=== PATIENT | female | born 1965 | race Caucasian/White ===

== ENCOUNTER 2017-10-09 17:24 | Emergency (ER) | payer OTHER ==
[~2017-10-09] VITALS: Ht 162.6 cm; Wt 109.8 kg
[~2017-10-09 17:24] MED LIST: ALBU90OI INH; ALBU90OI6 INH; AZIT250 PO; CLON.5 PO; DICL25ER PO; FURO100EL PO; FURO20 PO; HYDACE5325 PO; LISHYD1012 PO; LISI20 PO; LISI5 PO; MECL25 PO; Norco 5-325 Ta1 EACH PO; POTA10T PO; POTCHL10ER PO; RXALBOI INH; RXHYD5325 PO; SALM50IP INH; TUDORZA PRESS400 MCG IH; VICODIN 5-3001 EACH PO
[2017-10-09 17:54] LABS: BASOPHILS ABSOLUTE AUTO 0.05 K/mm3 (0.00-0.23); BASOPHILS PERCENT AUTO 1 % (0-2); EOSINOPHILS ABSOLUTE AUTO 0.14 K/mm3 (0.00-0.68); EOSINOPHILS PERCENT AUTO 2 % (0-6); Hematocrit 39.5 % (33.0-51.0); Hemoglobin 13.1 g/dL (11.5-16.0); IMMATURE GRAN ABSOLUTE AUTO 0.02 K/mm3 (0.00-0.10); IMMATURE GRAN PERCENT AUTO 0 % (0-1); LYMPHOCYTES ABSOLUTE AUTO 2.46 K/mm3 (0.84-5.20); LYMPHOCYTES PERCENT AUTO 35 % (21-46); MONOCYTES ABSOLUTE AUTO 0.21 K/mm3 (0.16-1.47); MONOCYTES PERCENT AUTO 3 % (4-13); Mean Corpuscular HGB 30.5 pg (26.0-34.0); Mean Corpuscular HGB Conc 33.2 g/dL (31.5-36.5); Mean Corpuscular Volume 92 fL (80-100); Mean Platelet Volume 9.1 fL (9.1-12.4); NEUTROPHILS ABSOLUTE AUTO 4.17 K/mm3 (1.96-9.15); NEUTROPHILS PERCENT AUTO 59 % (41-73); Platelet Count 228 K/mm3 (150-400); RDW Standard Deviation 43.4 fL (35.1-46.3); White Blood Cell Count 7.05 K/mm3 (4.00-11.30)
[2017-10-09 18:17] LABS: Alanine Aminotransfer (ALT/SGP 16 U/L (12-78); Albumin, Blood 3.5 g/dL (3.4-5.0); Alk Phos 89 U/L (50-136); Anion Gap 6 mmol/L (6-16); Aspartate Aminotrans (AST/SGOT 13 U/L (12-37); Bilirubin, Total 0.7 mg/dL (0.1-1.0); Blood Urea Nitrogen 18 mg/dL (8-24); CO2, Blood 28 mmol/L (21-32); Chloride, Blood 105 mmol/L (98-108); Creatinine, Blood 0.95 mg/dL (0.40-1.00); Globulin, Blood 3.5 g/dL (2.2-4.0); Glomerular Filtration Rate >60 (60-); Glucose, Blood 106 mg/dL (70-99); Potassium, Blood 3.8 mmol/L (3.5-5.5); Sodium, Blood 139 mmol/L (136-145)
[2017-10-09 18:18] LABS: Troponin I <0.015 ng/mL (0.000-0.040)
[2017-10-09] MEDS ORDERED: Diclofenac Sodi50 MG PO (20:40)
[2017-10-09] MEDS ORDERED: Prinivil10 MG PO (20:41)
[2017-10-09] MEDS ORDERED: CYCL10 PO (20:42)
[2017-10-09] MEDS ORDERED: VENL150ER PO (20:42)
[2017-10-09] MEDS ORDERED: BUSP10 PO (20:42)
[2017-10-09] MEDS ORDERED: TRAM50 PO (20:42)
[2017-10-09] MEDS ORDERED: BUSP15 PO (20:44)
[2017-10-09] MEDS ORDERED: CLON.5 PO (20:45)
[2017-10-09] MEDS ORDERED: Ventolin/Prove6.7 GM INH (20:45)
[2017-10-09] MEDS ORDERED: ASPI81CH PO (20:46)
== END 2017-10-09 21:21 | disposition home or self-care (01) ==
LOC: ER 17:24
PROVIDERS: Emergency Medicine
DX: R07.89 Other chest pain (principal); Z88.5 Allergy status to narcotic agent; Z88.8 Allergy status to other drugs, medicaments and biological substances; Z79.899 Other long term (current) drug therapy; J45.909 Unspecified asthma, uncomplicated; J44.9 Chronic obstructive pulmonary disease, unspecified; E11.9 Type 2 diabetes mellitus without complications; Z87.891 Personal history of nicotine dependence
CPT/HCPCS: 36415; 71046; 80053; 83880; 84484; 85025; 93005; 93010; 99284

== ENCOUNTER → 2017-10-22 | Outpatient (CLI) | payer OTHER ==
[~2017-10-22] MED LIST changes: +ASPI81CH PO; +BUSP10 PO; +BUSP15 PO; +CYCL10 PO; +Diclofenac Sodi50 MG PO; +Prinivil10 MG PO; +TRAM50 PO; +VENL150ER PO; +Ventolin/Prove6.7 GM INH
[2017-10-24 12:12] LABS: HPV Genotype 16 Not Detected (NOTDET); HPV Genotype 18 Not Detected (NOTDET)
[2017-10-29 10:32] LABS: HPV High Risk Other Not Detected (NOTDET)
== END | disposition home or self-care (01) ==
LOC: LAB 11:43
PROVIDERS: Obstetrics & Gynecology
DX: Z01.419 Encounter for gynecological examination (general) (routine) without abnormal findings (principal)
CPT/HCPCS: 87624; G0123

== ENCOUNTER 2019-02-25 07:45 | Day surgery (SDC) | payer OTHER ==
[~2019-02-25] VITALS: Ht 162.6 cm; Wt 134.8 kg
[~2019-02-25 07:45] MED LIST changes: +CITA20 PO; +Clonazepam0.25 MG PO; +Lisinopril2.5 MG PO; +Lovastatin20 MG PO; +MELO7.5 PO; +PRAZ1 PO; -Prinivil10 MG PO; +VITAMIN D32000 UNIT PO; +VOLTAREN100 GM
[2019-02-25] MEDS ORDERED: MELATONIN10 MG (08:35)
--- NOTE | 2019-02-25 10:41 | NUR ---
02/25/19 1041 Opal Goyal PT UPDATED OF DELAY IN PREOP DUE TO PREVIOUS CASE RUNNING LONGER THAN EXPECTED
--- NOTE | 2019-02-25 12:58 | NUR ---
02/25/19 Megha Horvath FENTANYL PULLED FROM OR PYXIS , UNABLE TO SCAN, MED WITH FENTANYL TOTAL 50 MCG GIVEN
== END 2019-02-25 12:32 | disposition home or self-care (01) ==
LOC: ORSCSDS 07:45
PROVIDERS: Orthopaedic Surgery
PROC: 01N50ZZ Release Median Nerve, Open Approach (ICD-10-PCS; principal; 2019-02-25 09:00)
DX: G56.02 Carpal tunnel syndrome, left upper limb (principal); I10 Essential (primary) hypertension; E11.9 Type 2 diabetes mellitus without complications; J44.9 Chronic obstructive pulmonary disease, unspecified; Z87.891 Personal history of nicotine dependence; E66.01 Morbid (severe) obesity due to excess calories; Z68.43 Body mass index [BMI] 50.0-59.9, adult; Z79.899 Other long term (current) drug therapy
CPT/HCPCS: 82947; J0690; J2250; J3010; J7120

== ENCOUNTER 2019-05-18 09:36 | Emergency (ER) | payer OTHER ==
[~2019-05-18] VITALS: Ht 162.6 cm; Wt 136.1 kg
[~2019-05-18 09:36] MED LIST changes: +MELATONIN10 MG
[2019-05-18 11:05] LABS: Calcium, Ionized (POC) 1.18 mmol/L (1.10-1.46); Chloride (POC) 102 mmol/L (98-108); Creatinine (POC) 1.2 mg/dL (0.6-1.0); Glucose (ISTAT POC) 109 mg/dL (70-99); Hemoglobin (POC) 11.6 g/dL (12.0-16.0); Potassium (POC) 4.2 mmol/L (3.5-5.5); Sodium (POC) 138 mmol/L (135-148); Total CO2 (POC) 29 mmol/L (21-32)
[2019-05-18] MEDS ORDERED: Percocet 5-3251 EACH PO (13:21)
== END 2019-05-18 13:27 | disposition home or self-care (01) ==
LOC: ER 09:36
DX: K42.9 Umbilical hernia without obstruction or gangrene (principal); Z88.5 Allergy status to narcotic agent; Z91.048 Other nonmedicinal substance allergy status; Z88.8 Allergy status to other drugs, medicaments and biological substances; Z79.899 Other long term (current) drug therapy; Z79.82 Long term (current) use of aspirin; J44.9 Chronic obstructive pulmonary disease, unspecified; E11.9 Type 2 diabetes mellitus without complications; Z87.891 Personal history of nicotine dependence
CPT/HCPCS: 36415; 74177; 80047; 85014; 99284-25; Q9967

== ENCOUNTER 2019-06-18 19:33 | Emergency (ER) | payer OTHER ==
[~2019-06-18] VITALS: Ht 162.6 cm; Wt 136.1 kg
[~2019-06-18 19:33] MED LIST changes: +Percocet 5-3251 EACH PO
[2019-06-18] MEDS ORDERED: IBUP600 PO (22:22)
[2019-06-18] MEDS ORDERED: LIDO700A20 TOP (22:22)
[2019-06-18] MEDS ORDERED: CYCL10 PO (22:22)
== END 2019-06-18 22:37 | disposition home or self-care (01) ==
LOC: ER 19:33
DX: M54.41 Lumbago with sciatica, right side (principal); E11.9 Type 2 diabetes mellitus without complications; J45.909 Unspecified asthma, uncomplicated; Z87.891 Personal history of nicotine dependence; Z88.5 Allergy status to narcotic agent; Z91.048 Other nonmedicinal substance allergy status; Z91.040 Latex allergy status; Z79.899 Other long term (current) drug therapy; Z79.1 Long term (current) use of non-steroidal anti-inflammatories (NSAID)
CPT/HCPCS: 96372; 99283-25; J1885

== ENCOUNTER 2019-11-02 17:49 | Emergency (ER) | payer OTHER ==
[~2019-11-02] VITALS: Ht 165.1 cm; Wt 136.1 kg
[~2019-11-02 17:49] MED LIST changes: +IBUP600 PO; +LIDO700A20 TOP
[2019-11-02] MEDS ORDERED: XARELTO15 MG PO (21:54)
== END 2019-11-02 22:14 | disposition home or self-care (01) ==
LOC: ER 17:49
DX: I82.432 Acute embolism and thrombosis of left popliteal vein (principal); Z88.5 Allergy status to narcotic agent; Z79.899 Other long term (current) drug therapy; J45.909 Unspecified asthma, uncomplicated; E11.9 Type 2 diabetes mellitus without complications; J43.9 Emphysema, unspecified; Z87.891 Personal history of nicotine dependence
CPT/HCPCS: 93971; 99283-25

== ENCOUNTER 2020-01-06 18:56 | Emergency (ER) | payer OTHER ==
[~2020-01-06] VITALS: Ht 165.1 cm; Wt 145.2 kg
[~2020-01-06 18:56] MED LIST changes: +XARELTO15 MG PO
[2020-01-06 19:30] LABS: BASOPHILS ABSOLUTE AUTO 0.05 K/mm3 (0.00-0.23); BASOPHILS PERCENT AUTO 1 % (0-2); EOSINOPHILS ABSOLUTE AUTO 0.28 K/mm3 (0.00-0.68); EOSINOPHILS PERCENT AUTO 4 % (0-6); Hematocrit 37.6 % (33.0-51.0); IMMATURE GRAN ABSOLUTE AUTO 0.05 K/mm3 (0.00-0.10); IMMATURE GRAN PERCENT AUTO 1 % (0-1); LYMPHOCYTES ABSOLUTE AUTO 1.59 K/mm3 (0.84-5.20); LYMPHOCYTES PERCENT AUTO 23 % (21-46); MONOCYTES ABSOLUTE AUTO 0.36 K/mm3 (0.16-1.47); MONOCYTES PERCENT AUTO 5 % (4-13); Mean Corpuscular HGB 29.8 pg (26.0-34.0); Mean Corpuscular HGB Conc 31.9 g/dL (31.5-36.5); Mean Corpuscular Volume 93 fL (80-100); NEUTROPHILS ABSOLUTE AUTO 4.71 K/mm3 (1.96-9.15); NEUTROPHILS PERCENT AUTO 67 % (41-73); Platelet Count 193 K/mm3 (150-400); RDW Coefficient Variation 14.8 % (11.7-14.2); RDW Standard Deviation 50.8 fL (35.1-46.3); Red Blood Cell Count 4.03 M/mm3 (3.80-5.20); White Blood Cell Count 7.04 K/mm3 (4.00-11.30)
[2020-01-06 19:44] LABS: International Normalized Ratio 2.52; Prothrombin Time Results 25.6 Sec (9.7-11.5)
[2020-01-06 19:46] LABS: D-Dimer, Quantitative <0.19 mg/L FEU (0.00-0.52)
[2020-01-06 19:48] LABS: Alanine Aminotransfer (ALT/SGP 24 U/L (12-78); Albumin, Blood 3.3 g/dL (3.4-5.0); Albumin/Globulin Ratio 0.8 (0.8-1.8); Alk Phos 94 U/L (50-136); Anion Gap 2 mmol/L (6-16); Aspartate Aminotrans (AST/SGOT 24 U/L (12-37); Bilirubin, Total 0.2 mg/dL (0.1-1.0); Blood Urea Nitrogen 19 mg/dL (8-24); Bun/Creatinine Ratio 19.9 (12.0-20.0); CO2, Blood 32 mmol/L (21-32); Calcium, Blood 8.8 mg/dL (8.5-10.1); Chloride, Blood 103 mmol/L (98-108); Creatinine, Blood 0.96 mg/dL (0.40-1.00); Globulin, Blood 3.9 g/dL (2.2-4.0); Glomerular Filtration Rate >60 (60-); Glucose, Blood 98 mg/dL (70-99); Potassium, Blood 4.4 mmol/L (3.5-5.5); Sodium, Blood 137 mmol/L (136-145); Total Protein, Blood 7.2 g/dL (6.4-8.2)
== END 2020-01-06 20:25 | disposition home or self-care (01) ==
LOC: ER 18:56
PROVIDERS: Emergency Medicine
DX: I89.0 Lymphedema, not elsewhere classified (principal); E11.9 Type 2 diabetes mellitus without complications; J43.9 Emphysema, unspecified; Z88.5 Allergy status to narcotic agent; Z91.048 Other nonmedicinal substance allergy status; Z91.040 Latex allergy status; Z79.899 Other long term (current) drug therapy; Z79.51 Long term (current) use of inhaled steroids; Z79.82 Long term (current) use of aspirin; Z86.718 Personal history of other venous thrombosis and embolism; Z87.891 Personal history of nicotine dependence
CPT/HCPCS: 36415; 80053; 85025; 85379; 85610; 96372; 99284; A9270; J1885

== ENCOUNTER → 2020-03-16 | Outpatient (CLI) | payer OTHER ==
[~2020-03-16] MED LIST changes: +ACET325 PO; +BUPR150ER PO; -BUSP15 PO; +Buspirone HCl30 MG PO; -CITA20 PO; +Celexa10 MG PO; +ELIQUIS5 MG PO; +GABA300 PO; -MELATONIN10 MG; +MELATONIN10 MG PO; +OXYC10TA19 PO; -PRAZ1 PO; +PRAZ2 PO; +TUDORZA PRESS400 MC1 INH
== END | disposition home or self-care (01) ==
LOC: LAB SHORT 16:26 → LAB EV 16:26
DX: M54.5 Low back pain (principal)
CPT/HCPCS: 87070; 87077; 87086; 87147; 87186; 87205

== ENCOUNTER → 2020-04-28 | Outpatient (CLI) | payer OTHER | LOC: LAB 18:47 → LAB SHORT 18:47 | DX: L08.9 Local infection of the skin and subcutaneous tissue, unspecified (principal); L51.0 Nonbullous erythema multiforme; R60.0 Localized edema | CPT/HCPCS: 87070; 87077; 87147; 87186; 87205 ==

== ENCOUNTER → 2020-09-20 | Outpatient (CLI) | payer OTHER | LOC: LAB 18:49 → LAB SHORT 18:49 | DX: L97.811 Non-pressure chronic ulcer of other part of right lower leg limited to breakdown of skin (principal); M31.0 Hypersensitivity angiitis; I89.0 Lymphedema, not elsewhere classified; L81.0 Postinflammatory hyperpigmentation; I87.2 Venous insufficiency (chronic) (peripheral); L81.4 Other melanin hyperpigmentation | CPT/HCPCS: 87070; 87205 ==

== ENCOUNTER → 2023-03-06 | Outpatient (CLI) | payer OTHER ==
[2023-03-06 20:01] LABS: Protein, Urine Quantitative 9.4 mg/dL (0.0-11.9)
[2023-03-06 20:04] LABS: Microalbumin, Urine Quant. <5.000 mg/L (0.000-20.000)
[2023-03-11 13:08] LABS: M-SPIKE, % Not Observed % (Not Observed); PROTEIN,TOTAL,URINE 6.1 mg/dL (Not Estab.)
== END | disposition home or self-care (01) ==
LOC: LAB 10:30 → LAB SHORT 10:30
PROVIDERS: Internal Medicine Nephrology
DX: N18.30 Chronic kidney disease, stage 3 unspecified (principal); D63.1 Anemia in chronic kidney disease; N25.81 Secondary hyperparathyroidism of renal origin; E55.9 Vitamin D deficiency, unspecified; R76.9 Abnormal immunological finding in serum, unspecified; R94.5 Abnormal results of liver function studies; R94.6 Abnormal results of thyroid function studies; G60.9 Hereditary and idiopathic neuropathy, unspecified; D51.8 Other vitamin B12 deficiency anemias; D52.8 Other folate deficiency anemias
CPT/HCPCS: 81050; 82043; 82570; 84156; 84166; 86335

== ENCOUNTER 2023-08-22 02:37 | Day surgery (SDC) | payer OTHER | END 2023-08-22 22:53 | disposition home or self-care (01) | LOC: WOUND 02:37 | DX: E11.621 Type 2 diabetes mellitus with foot ulcer (principal); L97.812 Non-pressure chronic ulcer of other part of right lower leg with fat layer exposed; E11.40 Type 2 diabetes mellitus with diabetic neuropathy, unspecified; I87.2 Venous insufficiency (chronic) (peripheral); E11.51 Type 2 diabetes mellitus with diabetic peripheral angiopathy without gangrene; J44.9 Chronic obstructive pulmonary disease, unspecified; Z88.1 Allergy status to other antibiotic agents; Z87.891 Personal history of nicotine dependence | CPT/HCPCS: A9270; G0463 ==

== ENCOUNTER 2023-08-29 01:22 | Day surgery (SDC) | payer OTHER | END 2023-08-29 22:57 | disposition home or self-care (01) | LOC: WOUND 01:22 | DX: E11.622 Type 2 diabetes mellitus with other skin ulcer (principal); L97.812 Non-pressure chronic ulcer of other part of right lower leg with fat layer exposed; E11.40 Type 2 diabetes mellitus with diabetic neuropathy, unspecified; I87.2 Venous insufficiency (chronic) (peripheral); I73.9 Peripheral vascular disease, unspecified; I89.0 Lymphedema, not elsewhere classified | CPT/HCPCS: G0463 ==

== ENCOUNTER 2023-09-12 04:52 | Day surgery (SDC) | payer OTHER | END 2023-09-12 23:07 | disposition home or self-care (01) | LOC: WOUND 04:52 | DX: E11.622 Type 2 diabetes mellitus with other skin ulcer (principal); L97.812 Non-pressure chronic ulcer of other part of right lower leg with fat layer exposed; E11.40 Type 2 diabetes mellitus with diabetic neuropathy, unspecified; I87.2 Venous insufficiency (chronic) (peripheral); E11.51 Type 2 diabetes mellitus with diabetic peripheral angiopathy without gangrene | CPT/HCPCS: G0463 ==

== ENCOUNTER → 2023-09-19 | Outpatient (CLI) | payer OTHER ==
[2023-09-19 18:37] LABS: BASOPHILS ABSOLUTE AUTO 0.03 K/mm3 (0.00-0.23); BASOPHILS PERCENT AUTO 0 % (0-2); EOSINOPHILS ABSOLUTE AUTO 0.11 K/mm3 (0.00-0.68); EOSINOPHILS PERCENT AUTO 2 % (0-6); Hematocrit 38.7 % (33.0-51.0); Hemoglobin 12.5 g/dL (11.5-16.0); IMMATURE GRAN ABSOLUTE AUTO 0.02 K/mm3 (0.00-0.10); IMMATURE GRAN PERCENT AUTO 0 % (0-1); LYMPHOCYTES ABSOLUTE AUTO 1.66 K/mm3 (0.84-5.20); LYMPHOCYTES PERCENT AUTO 25 % (21-46); MONOCYTES ABSOLUTE AUTO 0.28 K/mm3 (0.16-1.47); MONOCYTES PERCENT AUTO 4 % (4-13); Mean Corpuscular HGB 30.9 pg (26.0-34.0); Mean Corpuscular HGB Conc 32.3 g/dL (31.5-36.5); Mean Corpuscular Volume 96 fL (80-100); Mean Platelet Volume 9.7 fL (9.1-12.4); NEUTROPHILS ABSOLUTE AUTO 4.65 K/mm3 (1.96-9.15); NEUTROPHILS PERCENT AUTO 69 % (41-73); Platelet Count 124 K/mm3 (150-400); RDW Standard Deviation 55.9 fL (35.1-46.3); Red Blood Cell Count 4.05 M/mm3 (3.80-5.20); White Blood Cell Count 6.75 K/mm3 (4.00-11.30)
== END ==
LOC: LAB 16:00 → LAB SHORT 16:00
PROVIDERS: Internal Medicine Hematology & Oncology
DX: R16.1 Splenomegaly, not elsewhere classified (principal); D63.1 Anemia in chronic kidney disease
CPT/HCPCS: 85025

== ENCOUNTER 2023-09-27 03:09 | Day surgery (SDC) | payer OTHER | END 2023-09-27 23:01 | disposition home or self-care (01) | LOC: WOUND 03:09 | DX: E11.622 Type 2 diabetes mellitus with other skin ulcer (principal); L97.812 Non-pressure chronic ulcer of other part of right lower leg with fat layer exposed; I87.2 Venous insufficiency (chronic) (peripheral); E11.40 Type 2 diabetes mellitus with diabetic neuropathy, unspecified; E11.51 Type 2 diabetes mellitus with diabetic peripheral angiopathy without gangrene | CPT/HCPCS: G0463 ==

== ENCOUNTER 2023-10-11 01:29 | Day surgery (SDC) | payer OTHER | END 2023-10-11 22:53 | disposition home or self-care (01) | LOC: WOUND 01:29 | DX: E11.622 Type 2 diabetes mellitus with other skin ulcer (principal); L97.812 Non-pressure chronic ulcer of other part of right lower leg with fat layer exposed; I87.2 Venous insufficiency (chronic) (peripheral); E11.40 Type 2 diabetes mellitus with diabetic neuropathy, unspecified; E11.51 Type 2 diabetes mellitus with diabetic peripheral angiopathy without gangrene | CPT/HCPCS: A9270; G0463 ==

== ENCOUNTER 2023-10-18 04:06 | Day surgery (SDC) | payer OTHER ==
[2023-10-18] MEDS ORDERED: Lidocaine HCl 4% Cream 5 GM ONE (15:09)
== END 2023-10-19 00:04 | disposition home or self-care (01) ==
LOC: WOUND 04:06
DX: E11.622 Type 2 diabetes mellitus with other skin ulcer (principal); L97.811 Non-pressure chronic ulcer of other part of right lower leg limited to breakdown of skin; E11.40 Type 2 diabetes mellitus with diabetic neuropathy, unspecified; E11.51 Type 2 diabetes mellitus with diabetic peripheral angiopathy without gangrene; I87.2 Venous insufficiency (chronic) (peripheral)
CPT/HCPCS: A9270; G0463

== ENCOUNTER 2023-10-21 03:26 | Day surgery (SDC) | payer OTHER | END 2023-10-21 23:40 | disposition home or self-care (01) | LOC: WOUND 03:26 | DX: E11.622 Type 2 diabetes mellitus with other skin ulcer (principal); L97.811 Non-pressure chronic ulcer of other part of right lower leg limited to breakdown of skin; E11.40 Type 2 diabetes mellitus with diabetic neuropathy, unspecified; E11.51 Type 2 diabetes mellitus with diabetic peripheral angiopathy without gangrene; I87.2 Venous insufficiency (chronic) (peripheral) | CPT/HCPCS: A9270; G0463 ==

== ENCOUNTER 2023-11-01 00:55 | Day surgery (SDC) | payer OTHER ==
[2023-11-01] MEDS ORDERED: Lidocaine HCl 4% Cream 5 GM ONE (12:11)
== END 2023-11-01 23:12 | disposition home or self-care (01) ==
LOC: WOUND 00:55
DX: E11.622 Type 2 diabetes mellitus with other skin ulcer (principal); L97.812 Non-pressure chronic ulcer of other part of right lower leg with fat layer exposed; E11.40 Type 2 diabetes mellitus with diabetic neuropathy, unspecified; E11.51 Type 2 diabetes mellitus with diabetic peripheral angiopathy without gangrene; I87.2 Venous insufficiency (chronic) (peripheral)
CPT/HCPCS: A9270; G0463

== ENCOUNTER 2023-11-08 01:54 | Day surgery (SDC) | payer OTHER | END 2023-11-08 23:07 | disposition home or self-care (01) | LOC: WOUND 01:54 | DX: E11.622 Type 2 diabetes mellitus with other skin ulcer (principal); L97.812 Non-pressure chronic ulcer of other part of right lower leg with fat layer exposed; E11.40 Type 2 diabetes mellitus with diabetic neuropathy, unspecified; E11.51 Type 2 diabetes mellitus with diabetic peripheral angiopathy without gangrene; I87.2 Venous insufficiency (chronic) (peripheral) | CPT/HCPCS: A6213; G0463 ==

== ENCOUNTER 2023-11-20 02:12 | Day surgery (SDC) | payer OTHER | END 2023-11-20 22:53 | disposition home or self-care (01) | LOC: WOUND 02:12 | DX: E11.622 Type 2 diabetes mellitus with other skin ulcer (principal); L97.811 Non-pressure chronic ulcer of other part of right lower leg limited to breakdown of skin; E11.40 Type 2 diabetes mellitus with diabetic neuropathy, unspecified; E11.51 Type 2 diabetes mellitus with diabetic peripheral angiopathy without gangrene; I87.2 Venous insufficiency (chronic) (peripheral) | CPT/HCPCS: G0463 ==

== ENCOUNTER 2024-01-24 04:07 | Day surgery (SDC) | payer OTHER | END 2024-01-24 23:01 | disposition home or self-care (01) | LOC: WOUND 04:07 | DX: E11.622 Type 2 diabetes mellitus with other skin ulcer (principal); L97.811 Non-pressure chronic ulcer of other part of right lower leg limited to breakdown of skin; E11.40 Type 2 diabetes mellitus with diabetic neuropathy, unspecified; E11.51 Type 2 diabetes mellitus with diabetic peripheral angiopathy without gangrene; I87.2 Venous insufficiency (chronic) (peripheral) | CPT/HCPCS: G0463 ==

== ENCOUNTER 2024-12-08 14:10 | Emergency (ER) | payer OTHER ==
[~2024-12-08] VITALS: Ht 162.6 cm; Wt 154.2 kg
[2024-12-08 15:15] LABS: BASOPHILS ABSOLUTE AUTO 0.05 K/mm3 (0.00-0.23); BASOPHILS PERCENT AUTO 1 % (0-2); EOSINOPHILS ABSOLUTE AUTO 0.07 K/mm3 (0.00-0.68); EOSINOPHILS PERCENT AUTO 1 % (0-6); Hemoglobin 13.2 g/dL (11.5-16.0); IMMATURE GRAN ABSOLUTE AUTO 0.15 K/mm3 (0.00-0.10); IMMATURE GRAN PERCENT AUTO 2 % (0-1); LYMPHOCYTES ABSOLUTE AUTO 1.17 K/mm3 (0.84-5.20); LYMPHOCYTES PERCENT AUTO 16 % (21-46); MONOCYTES ABSOLUTE AUTO 0.25 K/mm3 (0.16-1.47); MONOCYTES PERCENT AUTO 4 % (4-13); Mean Corpuscular HGB 28.1 pg (26.0-34.0); Mean Corpuscular HGB Conc 32.2 g/dL (31.5-36.5); Mean Corpuscular Volume 87 fL (80-100); Mean Platelet Volume 9.1 fL (9.1-12.4); NEUTROPHILS ABSOLUTE AUTO 5.43 K/mm3 (1.96-9.15); NEUTROPHILS PERCENT AUTO 76 % (41-73); Platelet Count 153 K/mm3 (150-400); RDW Coefficient Variation 15.4 % (11.7-14.2); RDW Standard Deviation 49.1 fL (35.1-46.3); Red Blood Cell Count 4.69 M/mm3 (3.80-5.20); White Blood Cell Count 7.12 K/mm3 (4.00-11.30)
[2024-12-08 15:30] LABS: Albumin, Blood 3.3 g/dL (3.4-5.0); Albumin/Globulin Ratio 0.7 (0.8-1.8); Bilirubin, Total 0.9 mg/dL (0.1-1.0); Globulin, Blood 4.5 g/dL (2.2-4.0); Total Protein, Blood 7.8 g/dL (6.4-8.2)
[2024-12-08 15:56] LABS: Influenza A, PCR NEGATIVE (NEGATIVE); Influenza B, PCR NEGATIVE (NEGATIVE); Resp Syncytial Virus, PCR NEGATIVE (NEGATIVE); SARS-Cov-2 (COVID-19) PCR, MMC NEGATIVE (NEGATIVE)
[2024-12-08] MEDS ORDERED: MethylPREDNISolone Sod Succ 125 MG Vial IV ONE ×2 (16:35→19:40)
[2024-12-08] MEDS ORDERED: Morphine Sulfate 4 MG/1 ML Injection IV ONE (16:35)
[2024-12-08] MEDS ORDERED: Ipratropium/Albuterol SulF 2.5-0.5MG/3 ML Amp INH ONE (16:35)
[2024-12-08] MEDS ORDERED: DICLOFENAC SODI50 GM TP (17:35)
[2024-12-08] MEDS ORDERED: DULOXETINE HCL60 M1 PO (17:36)
[2024-12-08] MEDS ORDERED: BREZTRI AEROS10.7 GM (17:36)
[2024-12-08] MEDS ORDERED: FUROSEMIDE40 MG PO (17:36)
[2024-12-08] MEDS ORDERED: VITAMIN B-121000 MCG PO (17:36)
[2024-12-08] MEDS ORDERED: INSULIN GL100 UNIT/2 SQ (17:36)
[2024-12-08] MEDS ORDERED: LISINOPRIL2.5 MG PO (17:37)
[2024-12-08] MEDS ORDERED: Glucotrol Xl10 MG PO (17:37)
[2024-12-08] MEDS ORDERED: Neurontin800 MG PO (17:39)
[2024-12-08] MEDS ORDERED: PRED20 PO (19:19)
[2024-12-08] MEDS ORDERED: ALBU2.5V5 INH (19:19)
[2024-12-08 19:54] VITALS: BP 120/90
== END 2024-12-08 19:58 | disposition home or self-care (01) ==
LOC: ER 14:10
PROVIDERS: Emergency Medicine
DX: J44.1 Chronic obstructive pulmonary disease with (acute) exacerbation (principal); R19.7 Diarrhea, unspecified; Z88.5 Allergy status to narcotic agent; Z88.1 Allergy status to other antibiotic agents; Z91.040 Latex allergy status; Z79.899 Other long term (current) drug therapy; Z79.2 Long term (current) use of antibiotics; Z79.01 Long term (current) use of anticoagulants; Z79.891 Long term (current) use of opiate analgesic; Z87.891 Personal history of nicotine dependence
CPT/HCPCS: 0241U; 71045; 74177; 80053; 85025; 93005; 93010; 94640; 94664; 96374-59; 99285-25; J2919; Q9967

== ENCOUNTER → 2024-12-15 | Outpatient (CLI) | payer OTHER ==
[~2024-12-15] MED LIST changes: +ALBU2.5V5 INH; +BREZTRI AEROS10.7 GM; +DICLOFENAC SODI50 GM TP; +DULOXETINE HCL60 M1 PO; +FUROSEMIDE40 MG PO; +Glucotrol Xl10 MG PO; +INSULIN GL100 UNIT/2 SQ; +LISINOPRIL2.5 MG PO; +Neurontin800 MG PO; +PRED20 PO; +VITAMIN B-121000 MCG PO
[2024-12-16 20:38] LABS: Adenovirus F 40/41 Not Detected (NOT DETECT); Astrovirus Not Detected (NOT DETECT); Campylobacter Sp Not Detected (NOT DETECT); Cryptosporidium Not Detected (NOT DETECT); Cyclospora Cayetanensis Not Detected (NOT DETECT); E. Coli O157 Not Detected (NOT DETECT); Entamoeba Histolytica Not Detected (NOT DETECT); Enteroaggregative E. coli-EAEC Not Detected (NOT DETECT); Enteropathogenic E. coli-EPEC Not Detected (NOT DETECT); Enterotoxigenic E. coli-ETEC Not Detected (NOT DETECT); Giardia Lamblia Not Detected (NOT DETECT); Norovirus GI/GII Not Detected (NOT DETECT); Plesiomonas Shigelloides Not Detected (NOT DETECT); Rotavirus A Not Detected (NOT DETECT); Salmonella Sp Not Detected (NOT DETECT); Sapovirus Not Detected (NOT DETECT); Shiga Toxin-prod E. coli-STEC Not Detected (NOT DETECT); Shigella/Enteroin E. coli-EIEC Not Detected (NOT DETECT); Vibrio Cholerae Not Detected (NOT DETECT); Vibrio Sp Not Detected (NOT DETECT); Yersinia Enterocolitica Not Detected (NOT DETECT)
== END | disposition home or self-care (01) ==
LOC: LAB 11:58 → LAB SHORT 11:58
PROVIDERS: Family Medicine
DX: R19.7 Diarrhea, unspecified (principal)
CPT/HCPCS: 87507